=== PATIENT | female | born 1995 | race Two or more races ===

== ENCOUNTER 2018-01-20 05:28 | Emergency (ER) | payer SELFPAY ==
[2018-01-20 05:42] LABS: URINE HCG POC HCG NEGATIVE (Negative)
[2018-01-20 06:21] LABS: BILIRUBIN,URINE NEGATIVE (NEG); CLARITY,URINE CLOUDY; COLOR,URINE RED; GLUCOSE,URINE NEGATIVE (NEG); NITRITE,URINE NEGATIVE (NEG); PH,URINE 5.5; PROTEIN,URINE 100 mg/dL (NEG-TRACE); UROBILINOGEN,URINE 0.2 mg/dL (0.2 mg/dL)
[2018-01-20 06:25] LABS: ADD MAN DIFF? NO
[2018-01-20 06:29] LABS: BASO % 0 % (0-3); EOS # 0.1 x10^3/uL (0.0-0.7); EOS % 1 % (0-3); HEMATOCRIT 37.6 % (36.0-47.0); HEMOGLOBIN 12.6 g/dL (12.0-15.5); LYMPH # 1.1 x10^3/uL (1.0-4.8); LYMPH % 10 % (24-48); MEAN CORPUSCULAR HEMOGLOBIN 30 pg (25-35); MEAN CORPUSCULAR HGB CONC 34 g/dL (31-37); MEAN CORPUSCULAR VOLUME 89 fL (79-100); MONO # 0.6 x10^3/uL (0.0-1.1); MONO % 5 % (0-9); NEUT # 9.2 x10^3uL (1.8-7.7); NEUT % 84 % (31-73); PLATELET COUNT 177 x10^3/uL (140-400); RED BLOOD COUNT 4.24 x10^6/uL (3.50-5.40)
[2018-01-20 06:31] LABS: RBC,URINE TNTC /HPF (0-2); SQUAMOUS EPITHELIAL CELL,UR MANY /LPF
[2018-01-20 06:32] LABS: BACTERIA,URINE MANY /HPF (0-FEW)
[2018-01-20 06:39] LABS: ANION GAP 12 (6-14); BLOOD UREA NITROGEN 15 mg/dL (7-20); BUN/CREATININE RATIO 19 (6-20); CARBON DIOXIDE 23 mmol/L (21-32); CHLORIDE 104 mmol/L (98-107); CREATININE 0.8 mg/dL (0.6-1.0); GFR 88.9; GLUCOSE 95 mg/dL (70-99); POTASSIUM 3.1 mmol/L (3.5-5.1); SODIUM 139 mmol/L (136-145)
[2018-01-20 06:41] LABS: ALBUMIN 3.9 g/dL (3.4-5.0); ALBUMIN/GLOBULIN RATIO 1.3 (1.0-1.7); ALK PHOS 55 U/L (46-116); ALT (SGPT) 20 U/L (14-59); AST (SGOT) 18 U/L (15-37); LIPASE 148 U/L (73-393); TOTAL BILIRUBIN 0.4 mg/dL (0.2-1.0)
[2018-01-20] MEDS: IV NORMAL SALINE 1000ML BAG 1,000 ML IV (06:45)
[2018-01-20] MEDS: cefTRIAXone IM 250 MG VIAL IM (07:20)
[2018-01-20] MEDS: AZITHROMYCIN 250 MG TABLET. PO (07:21)
[2018-01-22 14:17] LABS: CHLAMYDIA PROBE Negative (Negative); GC PROBE Negative (Negative)
== END 2018-01-20 08:09 | disposition home or self-care (01) ==
LOC: ER 05:28
DX: R10.30 Lower abdominal pain, unspecified (principal)
CPT/HCPCS: 36415; 80053; 81001; 81025; 83690; 85025; 87086; 87491; 87591; 96360; 96372; 99284-25; J0696; J7030; Q0111; Q0144